=== PATIENT | female | born 1940 | race Caucasian/White ===

== ENCOUNTER → 2021-05-16 | Outpatient (CLI) | payer MEDICARE | END | disposition home or self-care (01) | LOC: CFH 08:51 | PROVIDERS: ATTEND Family Medicine | DX: N60.01 Solitary cyst of right breast (principal); M81.0 Age-related osteoporosis without current pathological fracture; N64.4 Mastodynia; N95.9 Unspecified menopausal and perimenopausal disorder | CPT/HCPCS: 76642; 77062; 77080; 77066; G0279 ==